=== PATIENT | male | born 1990 | race Caucasian/White ===

== ENCOUNTER 2023-06-20 14:53 | Emergency (ER) | payer MEDICAID ==
[~2023-06-20 14:53] MED LIST: ALPR-624 PO; CYCL-1 PO; IBUP-1984 PO
[2023-06-20 15:46] VITALS: BP 119/77; PULSE 71; RESP 18; TEMP 97.3; O2SAT 99
== END 2023-06-20 18:31 | disposition left against medical advice (07) ==
LOC: ER 14:54
DX: R21 Rash and other nonspecific skin eruption (principal); Z53.21 Procedure and treatment not carried out due to patient leaving prior to being seen by health care provider
CPT/HCPCS: 99281

== ENCOUNTER 2023-06-28 09:48 | Emergency (ER) | payer MEDICAID ==
[~2023-06-28] VITALS: Ht 195.6 cm; Wt 81.8 kg
[2023-06-28 12:53] VITALS: BP 117/79; PULSE 78; RESP 18; O2SAT 99
[2023-06-28] MEDS ORDERED: dexamethasone sod phosphate 10mg/ml inj PO STA (14:17)
[2023-06-28] MEDS ORDERED: AMOX-117 PO (14:48)
[2023-06-28 14:50] LABS: STREP A SCREEN NEGATIVE (Neg)
== END 2023-06-28 14:58 | disposition home or self-care (01) ==
LOC: ER 09:49
DX: H66.91 Otitis media, unspecified, right ear (principal); G89.29 Other chronic pain; M54.9 Dorsalgia, unspecified; F17.200 Nicotine dependence, unspecified, uncomplicated; F12.10 Cannabis abuse, uncomplicated
CPT/HCPCS: 87081; 87880; 99283; J1100

== ENCOUNTER 2025-07-12 16:27 | Emergency (ER) | payer MEDICAID ==
[~2025-07-12] VITALS: Ht 195.6 cm; Wt 84.1 kg
[2025-07-12 16:30] VITALS: BP 101/68; PULSE 100; RESP 15; TEMP 98.1; O2SAT 100
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
== END 2025-07-12 17:30 ==
LOC: ER 16:27
DX: Z04.1 Encounter for examination and observation following transport accident (principal); F12.90 Cannabis use, unspecified, uncomplicated; V87.7XXA Person injured in collision between other specified motor vehicles (traffic), initial encounter; Y93.89 Activity, other specified; Y92.410 Unspecified street and highway as the place of occurrence of the external cause; Y99.8 Other external cause status
CPT/HCPCS: 99283